=== PATIENT | male | born 1945 | race Caucasian/White ===

== ENCOUNTER → 2016-09-07 | Outpatient (CLI) | payer MEDICARE, BC ==
[~2016-09-07] MED LIST: ATORVASTATIN CA40 MG PO; CASODEX 50MG TA50 MG PO; CLOPIDOGREL PO; GLUCOPHAGE PO; GOOD SENSE ASPI81 M1 PO; ISOSORBIDE30 MG PO; LAMISIL250 MG PO; METOPROLOL SUCC25 M1 PO; METOPROLOL SUCC25 MG PO; NITROGLYCERIN0.4 M1 SL; PRILOSEC 20MG20 MG PO; [UNRECOGNIZED DRUG - OTHER] SC
== END ==
LOC: LAB 07:53
DX: E11.9 Type 2 diabetes mellitus without complications (principal); C61 Malignant neoplasm of prostate

== ENCOUNTER → 2016-10-20 | Outpatient (CLI) | payer MEDICARE, BC | LOC: LAB 13:53 | DX: C61 Malignant neoplasm of prostate (principal) ==

== ENCOUNTER → 2016-12-21 | Outpatient (CLI) | payer MEDICARE, BC ==
[2013-01-19 16:35] VITALS: BP 112/69
== END ==
LOC: LAB 08:39
DX: C61 Malignant neoplasm of prostate (principal)

== ENCOUNTER → 2017-01-06 | Outpatient (CLI) | payer MEDICARE, BC ==
[~2017-01-06] VITALS: Ht 175.3 cm; Wt 94.1 kg
[2017-01-06 14:50] VITALS: BP 98/61
[2017-01-06 14:57] VITALS: BP 105/52
[2017-01-06 16:34] VITALS: BP 106/64
--- NOTE | 2017-01-06 16:36 | NUR ---
RESULTS OF OUTPATIENT TX CALLED TO , REQUESTS PT RETURN TO CLINIC SO HE CAN DC HIM WITH THE PROPER MEDICATIONS, WILL REMOVE IV AND ESCORT PT TO CLINIC AT THIS TIME
== END ==
LOC: AMSURD 14:49
DX: I95.9 Hypotension, unspecified (principal); R51 Headache; R53.83 Other fatigue
CPT/HCPCS: J7030

== ENCOUNTER → 2017-06-01 | Outpatient (CLI) | payer MEDICARE, BC ==
[2017-01-06 16:34] VITALS: BP 106/64
== END ==
LOC: LAB 07:02
DX: I25.10 Atherosclerotic heart disease of native coronary artery without angina pectoris (principal); E11.9 Type 2 diabetes mellitus without complications; E80.6 Other disorders of bilirubin metabolism

== ENCOUNTER → 2018-01-26 | Outpatient (CLI) | payer MEDICARE, BC ==
[2017-01-06 16:34] VITALS: BP 106/64
[2018-01-26 22:46] LABS: TESTOSTERONE 42 ng/dL (221-716)
== END ==
LOC: LAB 16:21
PROVIDERS: Family Medicine
DX: C61 Malignant neoplasm of prostate (principal); E11.9 Type 2 diabetes mellitus without complications; M79.606 Pain in leg, unspecified

== ENCOUNTER 2018-03-15 10:18 | Emergency (ER) | payer MEDICARE, BC ==
[~2018-03-15] VITALS: Ht 175.3 cm; Wt 90.9 kg
[2018-03-15 10:54] LABS: EOS # 0.3 (0.04-0.40); HEMATOCRIT 42.1 % (42.0-52.0); HEMOGLOBIN 14.1 g/dL (13.5-18.0); LYMPH# 1.4 (1.50-4.00); MEAN CELL VOLUME 81 fl (78-100); MEAN CORPUSCULAR HEMOGLOBIN 27 pg (27-31); MEAN CORPUSCULAR HGB CONC 34 g/dL (33-37); MEAN PLATELET VOLUME 8.7 fl (7.4-10.4); MONO # 0.6 (0.20-0.80); NEU # 4.3 (1.40-6.50); PLATELET COUNT 207 K/mm3 (130-400); RED BLOOD COUNT 5.19 M/mm3 (4.20-5.60); RED CELL DISTRIBUTION WIDTH 14.1 % (11.5-14.5); WHITE BLOOD COUNT 6.5 K/mm3 (4.8-10.8)
[2018-03-15 11:05] LABS: BUN/CREATININE RATIO 20.4 (6.0-26.0); CALCIUM 9.1 mg/dL (8.4-10.2); TOTAL BILIRUBIN 1.6 mg/dL (0.2-1.3)
[2018-03-15 11:08] LABS: PROTHROMBIN TIME 9.3 SECONDS (9.0-12.0)
[2018-03-15] MEDS ORDERED: GLUCOPHAGE PO (14:13)
[2018-03-15 14:50] VITALS: BP 122/62
== END 2018-03-15 14:56 | disposition home or self-care (01) ==
LOC: ED 10:18
PROVIDERS: Nurse Practitioner
DX: R07.9 Chest pain, unspecified (principal); I95.2 Hypotension due to drugs; R00.1 Bradycardia, unspecified; T44.7X5A Adverse effect of beta-adrenoreceptor antagonists, initial encounter; Z79.02 Long term (current) use of antithrombotics/antiplatelets; I25.10 Atherosclerotic heart disease of native coronary artery without angina pectoris; I10 Essential (primary) hypertension; Z95.5 Presence of coronary angioplasty implant and graft; E11.9 Type 2 diabetes mellitus without complications; Z79.899 Other long term (current) drug therapy; Z79.84 Long term (current) use of oral hypoglycemic drugs; Z79.82 Long term (current) use of aspirin
CPT/HCPCS: J7030

== ENCOUNTER → 2018-04-30 | Outpatient (CLI) | payer MEDICARE, BC ==
[2018-04-30 13:09] LABS: HEMATOCRIT 41.4 % (42.0-52.0); HEMOGLOBIN 14.4 g/dL (13.5-18.0); MEAN CELL VOLUME 81 fl (78-100); MEAN CORPUSCULAR HEMOGLOBIN 28 pg (27-31); MEAN CORPUSCULAR HGB CONC 35 g/dL (33-37); MEAN PLATELET VOLUME 8.8 fl (7.4-10.4); PLATELET COUNT 219 K/mm3 (130-400); RED CELL DISTRIBUTION WIDTH 14.1 % (11.5-14.5); WHITE BLOOD COUNT 10.5 K/mm3 (4.8-10.8)
[2018-04-30 13:16] LABS: URINE APPEARANCE CLOUDY; URINE BILIRUBIN NEGATIVE (NEGATIVE); URINE BLOOD TRACE (NEGATIVE); URINE COLOR YELLOW; URINE GLUCOSE NEGATIVE (NEGATIVE); URINE KETONE NEGATIVE (NEGATIVE); URINE LEUKOCYTE ESTERASE NEGATIVE (NEGATIVE); URINE NITRATE NEGATIVE (NEGATIVE); URINE PROTEIN(semi-quant) NEGATIVE (NEGATIVE); URINE UROBILINOGEN NORMAL (NORMAL)
[2018-04-30 13:26] LABS: BAND 1 % (0-10)
[2018-04-30 13:27] LABS: LYMPHOCYTE 7 % (20-51); MONOCYTE 7 % (3-10); NEUTROPHILS 82 % (42-75)
== END ==
LOC: LAB 12:50 → RAD 12:50
PROVIDERS: Family Medicine
DX: R10.9 Unspecified abdominal pain (principal); N20.0 Calculus of kidney; Z98.890 Other specified postprocedural states

== ENCOUNTER → 2018-05-03 | Outpatient (CLI) | payer MEDICARE, BC | LOC: LAB 12:18 | DX: R10.9 Unspecified abdominal pain (principal); G89.29 Other chronic pain ==

== ENCOUNTER → 2018-08-09 | Outpatient (CLI) | payer MEDICARE, BC ==
[2018-08-09 07:50] LABS: ALBUMIN 3.9 g/dL (3.5-5.0); CALCIUM 9.1 mg/dL (8.4-10.2); POTASSIUM 4.1 mmol/L (3.6-5.0); TOTAL BILIRUBIN 1.6 mg/dL (0.2-1.3); TOTAL PROTEIN 6.7 g/dL (6.3-8.2)
== END ==
LOC: LAB 06:38
PROVIDERS: Family Medicine
DX: C61 Malignant neoplasm of prostate (principal); I51.9 Heart disease, unspecified; E11.9 Type 2 diabetes mellitus without complications; E78.00 Pure hypercholesterolemia, unspecified

== ENCOUNTER 2018-08-25 09:22 | Emergency (ER) | payer MEDICARE, BC ==
[~2018-08-25] VITALS: Wt 95.9 kg
[2018-08-25] MEDS ORDERED: ZYRTEC10 M3 PO (09:48)
[2018-08-25 10:03] LABS: EOS # 0.2 (0.04-0.40); EOS % 3.2 % (0.0-4.0); HEMATOCRIT 41.4 % (42.0-52.0); LYMPH# 0.9 (1.50-4.00); MEAN CELL VOLUME 82 fl (78-100); MEAN CORPUSCULAR HEMOGLOBIN 28 pg (27-31); MEAN CORPUSCULAR HGB CONC 34 g/dL (33-37); MEAN PLATELET VOLUME 8.9 fl (7.4-10.4); MONO # 0.4 (0.20-0.80); NEU # 5.7 (1.40-6.50); PLATELET COUNT 204 K/mm3 (130-400); RED BLOOD COUNT 5.06 M/mm3 (4.20-5.60); RED CELL DISTRIBUTION WIDTH 13.5 % (11.5-14.5); WHITE BLOOD COUNT 7.2 K/mm3 (4.8-10.8)
[2018-08-25 10:12] LABS: ALBUMIN 3.8 g/dL (3.5-5.0); CALCIUM 8.8 mg/dL (8.4-10.2); POTASSIUM 4.2 mmol/L (3.6-5.0); TOTAL BILIRUBIN 1.6 mg/dL (0.2-1.3); TOTAL PROTEIN 6.2 g/dL (6.3-8.2)
[2018-08-25] MEDS ORDERED: MECLIZINE PO (10:34)
[2018-08-25 10:42] LABS: URINE APPEARANCE CLEAR; URINE BILIRUBIN NEGATIVE (NEGATIVE); URINE BLOOD TRACE (NEGATIVE); URINE COLOR YELLOW; URINE GLUCOSE NEGATIVE (NEGATIVE); URINE KETONE NEGATIVE (NEGATIVE); URINE LEUKOCYTE ESTERASE NEGATIVE (NEGATIVE); URINE MUCUS PRESENT (NOT PRESENT); URINE NITRATE NEGATIVE (NEGATIVE); URINE PROTEIN(semi-quant) TRACE mg/dL (NEGATIVE); URINE UROBILINOGEN NORMAL (NORMAL); URINE WBC 0-1 /hpf (0-3)
[2018-08-25 10:47] VITALS: BP 112/63
== END 2018-08-25 10:48 | disposition home or self-care (01) ==
LOC: ED 09:22
PROVIDERS: Nurse Practitioner Primary Care
DX: R42 Dizziness and giddiness (principal); E11.9 Type 2 diabetes mellitus without complications; Z79.84 Long term (current) use of oral hypoglycemic drugs; I25.10 Atherosclerotic heart disease of native coronary artery without angina pectoris; I10 Essential (primary) hypertension; Z95.5 Presence of coronary angioplasty implant and graft; Z79.02 Long term (current) use of antithrombotics/antiplatelets; E78.5 Hyperlipidemia, unspecified; K21.9 Gastro-esophageal reflux disease without esophagitis; Z85.46 Personal history of malignant neoplasm of prostate; Z79.82 Long term (current) use of aspirin; Z79.899 Other long term (current) drug therapy

== ENCOUNTER → 2018-11-09 | Outpatient (CLI) | payer MEDICARE, BC ==
[~2018-11-09] MED LIST changes: +MECLIZINE PO; +ZYRTEC10 M3 PO
== END ==
LOC: LAB 06:39
PROVIDERS: Urology
DX: E11.9 Type 2 diabetes mellitus without complications (principal); C61 Malignant neoplasm of prostate

== ENCOUNTER → 2019-02-06 | Outpatient (CLI) | payer MEDICARE | LOC: LAB 07:57 | DX: C61 Malignant neoplasm of prostate (principal) ==

== ENCOUNTER → 2019-05-03 | Outpatient (CLI) | payer MEDICARE | LOC: LAB 08:29 | DX: E11.9 Type 2 diabetes mellitus without complications (principal) ==

== ENCOUNTER → 2019-06-05 | Outpatient (CLI) | payer MEDICARE | LOC: RAD 16:26 | DX: M47.816 Spondylosis without myelopathy or radiculopathy, lumbar region (principal); R10.30 Lower abdominal pain, unspecified; R31.9 Hematuria, unspecified; M25.559 Pain in unspecified hip ==

== ENCOUNTER → 2019-06-08 | Outpatient (CLI) | payer MEDICARE ==
[2019-06-08 08:44] LABS: URINE APPEARANCE CLEAR; URINE COLOR YELLOW
[2019-06-08 08:45] LABS: URINE BILIRUBIN NEGATIVE (NEGATIVE); URINE BLOOD 50 ery/uL (NEGATIVE); URINE GLUCOSE NEGATIVE (NEGATIVE); URINE KETONE NEGATIVE (NEGATIVE); URINE LEUKOCYTE ESTERASE NEGATIVE (NEGATIVE); URINE MUCUS PRESENT (NOT PRESENT); URINE NITRATE NEGATIVE (NEGATIVE); URINE PROTEIN(semi-quant) NEGATIVE (NEGATIVE); URINE UROBILINOGEN NORMAL (NORMAL)
== END ==
LOC: LAB 08:22
PROVIDERS: Family Medicine
DX: R31.9 Hematuria, unspecified (principal)

== ENCOUNTER → 2019-07-11 | Outpatient (CLI) | payer MEDICARE | LOC: LAB 08:27 | DX: C61 Malignant neoplasm of prostate (principal) ==

== ENCOUNTER 2019-07-17 09:00 | Outpatient (RCR) | payer MEDICARE | END 2019-07-17 09:30 | disposition still patient (30) | LOC: PT 09:00 | DX: M54.5 Low back pain (principal) ==

== ENCOUNTER → 2019-08-10 | Outpatient (CLI) | payer MEDICARE | LOC: LAB 09:46 | DX: E11.9 Type 2 diabetes mellitus without complications (principal) ==

== ENCOUNTER → 2019-09-13 | Outpatient (CLI) | payer MEDICARE ==
[2019-09-13 17:15] LABS: BASO # 0.1 (0.02-0.10); EOS # 0.6 (0.04-0.40); HEMATOCRIT 42.1 % (42.0-52.0); HEMOGLOBIN 14.2 g/dL (13.5-18.0); LYMPH# 1.8 (1.50-4.00); MEAN CELL VOLUME 81 fl (78-100); MEAN CORPUSCULAR HEMOGLOBIN 27 pg (27-31); MEAN CORPUSCULAR HGB CONC 34 g/dL (33-37); MEAN PLATELET VOLUME 9.1 fl (7.4-10.4); MONO # 0.7 (0.20-0.80); NEU # 5.1 (1.40-6.50); PLATELET COUNT 216 K/mm3 (130-400); RED BLOOD COUNT 5.23 M/mm3 (4.20-5.60); WHITE BLOOD COUNT 8.2 K/mm3 (4.8-10.8)
[2019-09-13 17:26] LABS: ALBUMIN 3.9 g/dL (3.4-4.8); POTASSIUM 4.2 mmol/L (3.5-5.1)
[2019-09-13 17:27] LABS: CALCIUM 9.4 mg/dL (8.3-10.5)
[2019-09-13 17:29] LABS: TOTAL PROTEIN 6.7 g/dL (6.2-8.1)
[2019-09-13 17:30] LABS: TOTAL BILIRUBIN 1.6 mg/dL (0.2-1.2)
[2019-09-13 17:38] LABS: URINE APPEARANCE CLEAR; URINE COLOR YELLOW
[2019-09-13 17:39] LABS: URINE BILIRUBIN NEGATIVE (NEGATIVE); URINE BLOOD NEGATIVE (NEGATIVE); URINE GLUCOSE NEGATIVE (NEGATIVE); URINE KETONE NEGATIVE (NEGATIVE); URINE LEUKOCYTE ESTERASE NEGATIVE (NEGATIVE); URINE NITRATE NEGATIVE (NEGATIVE); URINE PROTEIN(semi-quant) TRACE mg/dL (NEGATIVE); URINE UROBILINOGEN NORMAL (NORMAL); URINE WBC 0-1 /hpf (0-3)
[2019-09-13 18:43] LABS: EOS % 6.7 % (0.0-4.0); ERYTHROCYTE SEDIMENTATION RATE 7 mm/hr (0-20)
[2019-09-14 10:31] LABS: DIRECT BILIRUBIN 0.4 mg/dL (0.0-0.5)
== END ==
LOC: LAB 16:42
PROVIDERS: Family Medicine
DX: K21.9 Gastro-esophageal reflux disease without esophagitis (principal); E78.00 Pure hypercholesterolemia, unspecified

== ENCOUNTER → 2019-09-14 | Outpatient (CLI) | payer MEDICARE | LOC: RAD 07:55 | DX: K59.02 Outlet dysfunction constipation (principal); Z90.49 Acquired absence of other specified parts of digestive tract; Z98.890 Other specified postprocedural states; Z96.641 Presence of right artificial hip joint ==

== ENCOUNTER → 2019-11-06 | Outpatient (CLI) | payer MEDICARE | LOC: LAB 06:59 | DX: E11.9 Type 2 diabetes mellitus without complications (principal); E78.00 Pure hypercholesterolemia, unspecified; K21.9 Gastro-esophageal reflux disease without esophagitis; C61 Malignant neoplasm of prostate; R10.9 Unspecified abdominal pain ==

== ENCOUNTER → 2020-01-10 | Outpatient (CLI) | payer MEDICARE | LOC: LAB 08:10 | DX: C61 Malignant neoplasm of prostate (principal) ==

== ENCOUNTER → 2020-03-11 | Outpatient (CLI) | payer MEDICARE | LOC: LAB 09:23 | DX: Z20.828 Contact with and (suspected) exposure to other viral communicable diseases (principal) ==

== ENCOUNTER → 2020-03-14 | Day surgery (SDC) | payer MEDICARE | LOC: MSO 07:17 | DX: K57.30 Diverticulosis of large intestine without perforation or abscess without bleeding (principal); R19.7 Diarrhea, unspecified; Z86.010 Personal history of colon polyps; K59.00 Constipation, unspecified; K22.2 Esophageal obstruction; Z20.828 Contact with and (suspected) exposure to other viral communicable diseases; Z88.3 Allergy status to other anti-infective agents; Z88.5 Allergy status to narcotic agent; Z88.8 Allergy status to other drugs, medicaments and biological substances; K21.0 Gastro-esophageal reflux disease with esophagitis; E11.9 Type 2 diabetes mellitus without complications | CPT/HCPCS: 00813; C1769; J2704; J3010; J7030 ==

== ENCOUNTER → 2020-06-14 | Outpatient (CLI) | payer MEDICARE | LOC: LAB 16:01 | DX: E11.9 Type 2 diabetes mellitus without complications (principal); C61 Malignant neoplasm of prostate ==

== ENCOUNTER → 2020-09-06 | Outpatient (CLI) | payer MEDICARE | LOC: LAB 07:50 | DX: E11.9 Type 2 diabetes mellitus without complications (principal); E55.9 Vitamin D deficiency, unspecified ==

== ENCOUNTER → 2020-09-21 | Outpatient (CLI) | payer MEDICARE | LOC: LAB 08:30 | DX: C61 Malignant neoplasm of prostate (principal) ==

== ENCOUNTER → 2020-11-28 | Outpatient (CLI) | payer MEDICARE ==
[2020-11-28 17:31] LABS: EOS # 0.3 (0.04-0.40); EOS % 2.7 % (0.0-4.0); HEMATOCRIT 41.7 % (42.0-52.0); HEMOGLOBIN 13.8 g/dL (13.5-18.0); LYMPH# 1.3 (1.50-4.00); MEAN CELL VOLUME 81 fl (78-100); MEAN CORPUSCULAR HEMOGLOBIN 27 pg (27-31); MEAN CORPUSCULAR HGB CONC 33 g/dL (33-37); MEAN PLATELET VOLUME 8.9 fl (7.4-10.4); MONO # 0.9 (0.20-0.80); NEU # 7.5 (1.40-6.50); PLATELET COUNT 220 K/mm3 (130-400); RED BLOOD COUNT 5.12 M/mm3 (4.20-5.60); RED CELL DISTRIBUTION WIDTH 14.2 % (11.5-14.5)
[2020-11-28 17:46] LABS: URINE APPEARANCE CLEAR; URINE BILIRUBIN NEGATIVE (NEGATIVE); URINE BLOOD 50 ery/uL (NEGATIVE); URINE COLOR YELLOW; URINE GLUCOSE NEGATIVE (NEGATIVE); URINE KETONE NEGATIVE (NEGATIVE); URINE LEUKOCYTE ESTERASE NEGATIVE (NEGATIVE); URINE MUCUS PRESENT (NOT PRESENT); URINE NITRATE NEGATIVE (NEGATIVE); URINE PROTEIN(semi-quant) TRACE mg/dL (NEGATIVE); URINE UROBILINOGEN NORMAL (NORMAL); URINE WBC 0-1 /hpf (0-3)
== END ==
LOC: LAB 16:57
PROVIDERS: Family Medicine
DX: N39.0 Urinary tract infection, site not specified (principal)

== ENCOUNTER → 2020-12-06 | Outpatient (CLI) | payer MEDICARE ==
[2020-12-06 08:37] LABS: URINE APPEARANCE CLEAR; URINE BILIRUBIN NEGATIVE (NEGATIVE); URINE BLOOD TRACE (NEGATIVE); URINE COLOR YELLOW; URINE GLUCOSE NEGATIVE (NEGATIVE); URINE KETONE NEGATIVE (NEGATIVE); URINE LEUKOCYTE ESTERASE NEGATIVE (NEGATIVE); URINE NITRATE NEGATIVE (NEGATIVE); URINE PROTEIN(semi-quant) NEGATIVE (NEGATIVE); URINE UROBILINOGEN NORMAL (NORMAL); URINE WBC 0-1 /hpf (0-3)
== END ==
LOC: LAB 08:07
PROVIDERS: Family Medicine
DX: R10.32 Left lower quadrant pain (principal)

== ENCOUNTER → 2021-01-10 | Outpatient (CLI) | payer MEDICARE ==
[2021-01-10 08:27] LABS: CALCIUM 8.9 mg/dL (8.3-10.5)
== END ==
LOC: LAB 08:01
PROVIDERS: Internal Medicine Interventional Cardiology
DX: R60.0 Localized edema (principal)

== ENCOUNTER → 2021-03-13 | Outpatient (CLI) | payer MEDICARE | LOC: LAB 10:44 | DX: E11.9 Type 2 diabetes mellitus without complications (principal) ==

== ENCOUNTER → 2021-04-02 | Outpatient (CLI) | payer MEDICARE | LOC: LAB 09:47 | DX: C61 Malignant neoplasm of prostate (principal) ==

== ENCOUNTER → 2021-09-03 | Outpatient (CLI) | payer MEDICARE ==
[2021-09-03 09:40] LABS: ALBUMIN 3.8 g/dL (3.4-4.8)
[2021-09-03 09:41] LABS: POTASSIUM 4.3 mmol/L (3.5-5.1)
[2021-09-03 09:42] LABS: CALCIUM 9.1 mg/dL (8.3-10.5)
[2021-09-03 09:43] LABS: TOTAL PROTEIN 7.3 g/dL (6.2-8.1)
[2021-09-03 09:45] LABS: TOTAL BILIRUBIN 1.7 mg/dL (0.2-1.2)
== END ==
LOC: LAB 08:57
PROVIDERS: Family Medicine
DX: C61 Malignant neoplasm of prostate (principal); E11.9 Type 2 diabetes mellitus without complications

== ENCOUNTER → 2021-09-05 | Outpatient (CLI) | payer MEDICARE | LOC: LAB 08:08 | DX: E78.00 Pure hypercholesterolemia, unspecified (principal) ==

== ENCOUNTER → 2021-12-22 | Outpatient (CLI) | payer MEDICARE | LOC: LAB 16:56 | DX: Z00.00 Encounter for general adult medical examination without abnormal findings (principal); C61 Malignant neoplasm of prostate; E11.9 Type 2 diabetes mellitus without complications; I51.9 Heart disease, unspecified; E78.00 Pure hypercholesterolemia, unspecified; E80.4 Gilbert syndrome; H61.23 Impacted cerumen, bilateral ==

== ENCOUNTER → 2022-03-25 | Outpatient (CLI) | payer MEDICARE ==
[2022-03-25 08:57] LABS: POTASSIUM 4.2 mmol/L (3.5-5.1)
[2022-03-25 08:59] LABS: TOTAL PROTEIN 6.9 g/dL (6.2-8.1)
[2022-03-25 09:01] LABS: TOTAL BILIRUBIN 2.8 mg/dL (0.2-1.2)
== END ==
LOC: LAB 07:56
PROVIDERS: Family Medicine
DX: E11.9 Type 2 diabetes mellitus without complications (principal)

== ENCOUNTER → 2022-09-17 | Outpatient (CLI) | payer MEDICARE ==
[2022-09-17 08:21] LABS: HEMATOCRIT 42.7 % (42.0-52.0); HEMOGLOBIN 14.7 g/dL (13.5-18.0); MEAN PLATELET VOLUME 8.5 fl (7.4-10.4); RED BLOOD COUNT 5.25 M/mm3 (4.20-5.60); RED CELL DISTRIBUTION WIDTH 13.5 % (11.5-14.5); WHITE BLOOD COUNT 7.6 K/mm3 (4.8-10.8)
[2022-09-17 08:25] LABS: POTASSIUM 4.3 mmol/L (3.5-5.1)
[2022-09-17 08:27] LABS: CALCIUM 9.8 mg/dL (8.3-10.5)
== END ==
LOC: LAB 08:01
PROVIDERS: Internal Medicine Interventional Cardiology
DX: E11.9 Type 2 diabetes mellitus without complications (principal); C61 Malignant neoplasm of prostate; I25.119 Atherosclerotic heart disease of native coronary artery with unspecified angina pectoris; E78.5 Hyperlipidemia, unspecified

== ENCOUNTER → 2022-09-29 | Outpatient (CLI) | payer MEDICARE ==
[2022-09-29 09:13] LABS: POTASSIUM 4.5 mmol/L (3.5-5.1)
[2022-09-29 09:14] LABS: CALCIUM 9.6 mg/dL (8.3-10.5)
[2022-09-29 09:16] LABS: TOTAL PROTEIN 6.7 g/dL (6.2-8.1)
[2022-09-29 09:17] LABS: TOTAL BILIRUBIN 1.6 mg/dL (0.2-1.2)
== END ==
LOC: LAB 08:50
PROVIDERS: Family Medicine
DX: I51.9 Heart disease, unspecified (principal); E11.9 Type 2 diabetes mellitus without complications; E78.00 Pure hypercholesterolemia, unspecified

== ENCOUNTER → 2022-10-09 | Outpatient (CLI) | payer MEDICARE ==
[2022-10-09 10:59] LABS: ALBUMIN 3.9 g/dL (3.4-4.8); POTASSIUM 4.2 mmol/L (3.5-5.1)
[2022-10-09 11:00] LABS: CALCIUM 9.1 mg/dL (8.3-10.5)
[2022-10-09 11:02] LABS: TOTAL PROTEIN 6.6 g/dL (6.2-8.1)
[2022-10-09 11:03] LABS: TOTAL BILIRUBIN 1.3 mg/dL (0.2-1.2)
[2022-10-09 11:14] LABS: BASO # 0.02 K/mm3 (0.02-0.10); EOS # 0.34 K/mm3 (0.04-0.40); EOS % 4.2 % (0.0-4.0); HEMOGLOBIN 14.4 g/dL (13.5-18.0); LYMPH# 0.86 K/mm3 (1.50-4.00); MEAN CELL VOLUME 83 fl (78-100); MEAN CORPUSCULAR HEMOGLOBIN 28 pg (27-31); MEAN CORPUSCULAR HGB CONC 34 g/dL (33-37); MEAN PLATELET VOLUME 8.6 fl (7.4-10.4); MONO # 0.51 K/mm3 (0.20-0.80); NEU # 6.29 K/mm3 (1.40-6.50); PLATELET COUNT 247 K/mm3 (130-400); RED BLOOD COUNT 5.18 M/mm3 (4.20-5.60)
== END ==
LOC: LAB 10:39
PROVIDERS: Internal Medicine
DX: C61 Malignant neoplasm of prostate (principal)

== ENCOUNTER 2022-11-18 11:14 | Emergency (ER) | payer MEDICARE ==
[~2022-11-18] VITALS: Ht 167.6 cm; Wt 87.3 kg
[2022-11-18 12:29] LABS: BASO # 0.01 K/mm3 (0.02-0.10); EOS # 0.22 K/mm3 (0.04-0.40); EOS % 3.4 % (0.0-4.0); HEMATOCRIT 41.5 % (42.0-52.0); LYMPH# 1.22 K/mm3 (1.50-4.00); MEAN CELL VOLUME 83 fl (78-100); MEAN CORPUSCULAR HEMOGLOBIN 28 pg (27-31); MEAN CORPUSCULAR HGB CONC 34 g/dL (33-37); MEAN PLATELET VOLUME 8.9 fl (7.4-10.4); MONO # 0.49 K/mm3 (0.20-0.80); NEU # 4.59 K/mm3 (1.40-6.50); PLATELET COUNT 241 K/mm3 (130-400); RED CELL DISTRIBUTION WIDTH 13.3 % (11.5-14.5); WHITE BLOOD COUNT 6.5 K/mm3 (4.8-10.8)
[2022-11-18 12:37] LABS: ALBUMIN 3.7 g/dL (3.4-4.8); SODIUM 141 mmol/L (136-145)
[2022-11-18 12:39] LABS: CALCIUM 9.2 mg/dL (8.3-10.5)
[2022-11-18 12:40] LABS: GLUCOSE 123 mg/dL (75-110); TOTAL PROTEIN 5.8 g/dL (6.2-8.1)
[2022-11-18 12:41] LABS: CARBON DIOXIDE 22 mmol/L (23-31)
[2022-11-18 12:42] LABS: TOTAL BILIRUBIN 1.3 mg/dL (0.2-1.2)
[2022-11-18 12:45] LABS: AST-SGOT 7 U/L (5-34)
[2022-11-18 12:46] LABS: ALT/SGPT 9 U/L (0-55)
[2022-11-18 12:58] LABS: TROPONIN-I < 0.030 ng/mL (<0.030)
[2022-11-18 13:01] LABS: D-DIMER 0.55 mg/L FEU (0.15-0.50)
[2022-11-18] MEDS ORDERED: PRILOSEC 20MG20 MG PO (13:30)
[2022-11-18 13:46] VITALS: BP 96/61
== END 2022-11-18 13:46 | disposition home or self-care (01) ==
LOC: ED 11:14
PROVIDERS: Physician Assistant
DX: R07.89 Other chest pain (principal); R00.1 Bradycardia, unspecified; R06.02 Shortness of breath; Z95.5 Presence of coronary angioplasty implant and graft

== ENCOUNTER 2023-03-30 13:00 | Outpatient (RCR) | payer MEDICARE ==
[~2023-03-30 13:00] MED LIST changes: +CELECOXIB200 M1 PO; +ISOSORBIDE MON120 MG PO; +JANUVIA 100MG100 MG; +MEGESTROL ACETA20 M1 PO; +METFORMIN HYD1000 MG PO; +NEURONTIN300 MG/CAP; +RANOLAZINE ER500 MG PO; +ROXICODONE 55 MG/TAB PO; +SPIRONOLACTONE50 M1 PO; +XARELTO10 MG PO
== END 2023-04-29 | disposition home or self-care (01) ==
LOC: PT
DX: M17.12 Unilateral primary osteoarthritis, left knee (principal)

== ENCOUNTER 2023-06-12 15:07 | Emergency (ER) | payer MEDICARE ==
[~2023-06-12] VITALS: Ht 172.7 cm; Wt 86.4 kg
[2023-06-12 15:48] LABS: BASO # 0.02 K/mm3 (0.02-0.10); EOS # 0.29 K/mm3 (0.04-0.40); EOS % 4.9 % (0.0-4.0); HEMATOCRIT 38.7 % (42.0-52.0); HEMOGLOBIN 13.2 g/dL (13.5-18.0); LYMPH# 1.35 K/mm3 (1.50-4.00); MEAN CELL VOLUME 84 fl (78-100); MEAN CORPUSCULAR HEMOGLOBIN 29 pg (27-31); MEAN CORPUSCULAR HGB CONC 34 g/dL (33-37); MONO # 0.46 K/mm3 (0.20-0.80); NEU # 3.78 K/mm3 (1.40-6.50); PLATELET COUNT 213 K/mm3 (130-400); RED BLOOD COUNT 4.63 M/mm3 (4.20-5.60); RED CELL DISTRIBUTION WIDTH 13.1 % (11.5-14.5); WHITE BLOOD COUNT 5.9 K/mm3 (4.8-10.8)
[2023-06-12 15:54] LABS: ALBUMIN 3.8 g/dL (3.4-4.8); POTASSIUM 3.9 mmol/L (3.5-5.1); SODIUM 140 mmol/L (136-145)
[2023-06-12 15:55] LABS: CALCIUM 8.8 mg/dL (8.3-10.5)
[2023-06-12 15:56] LABS: GLUCOSE 234 mg/dL (75-110)
[2023-06-12 15:57] LABS: CARBON DIOXIDE 21 mmol/L (23-31)
[2023-06-12 15:58] LABS: PROTHROMBIN TIME 9.8 SECONDS (9.0-12.0); TOTAL BILIRUBIN 1.4 mg/dL (0.2-1.2)
[2023-06-12 16:02] LABS: AST-SGOT 11 U/L (5-34)
[2023-06-12 16:03] LABS: ALT/SGPT 15 U/L (0-55)
[2023-06-12 16:11] LABS: TROPONIN-I < 0.030 ng/mL (<0.030)
[2023-06-12 17:04] VITALS: BP 136/74
== END 2023-06-12 17:12 | disposition home or self-care (01) ==
LOC: ED 15:07
PROVIDERS: Physician Assistant
DX: R07.89 Other chest pain (principal); R42 Dizziness and giddiness; Z98.61 Coronary angioplasty status
CPT/HCPCS: J7030

== ENCOUNTER 2023-06-22 20:01 | Emergency (ER) | payer MEDICARE ==
[~2023-06-22] VITALS: Wt 86.4 kg
[2023-06-22 21:01] LABS: ALBUMIN 3.8 g/dL (3.4-4.8); SODIUM 142 mmol/L (136-145)
[2023-06-22 21:03] LABS: CALCIUM 8.9 mg/dL (8.3-10.5)
[2023-06-22 21:04] LABS: BASO # 0.02 K/mm3 (0.02-0.10); EOS # 0.27 K/mm3 (0.04-0.40); EOS % 4.1 % (0.0-4.0); HEMATOCRIT 36.5 % (42.0-52.0); HEMOGLOBIN 12.3 g/dL (13.5-18.0); MEAN CELL VOLUME 84 fl (78-100); MEAN CORPUSCULAR HEMOGLOBIN 28 pg (27-31); MEAN CORPUSCULAR HGB CONC 34 g/dL (33-37); MEAN PLATELET VOLUME 8.5 fl (7.4-10.4); NEU # 4.23 K/mm3 (1.40-6.50); PLATELET COUNT 193 K/mm3 (130-400); RED BLOOD COUNT 4.36 M/mm3 (4.20-5.60); WHITE BLOOD COUNT 6.6 K/mm3 (4.8-10.8)
[2023-06-22 21:04] LABS: GLUCOSE 173 mg/dL (75-110); TOTAL PROTEIN 6.1 g/dL (6.2-8.1)
[2023-06-22 21:05] LABS: CARBON DIOXIDE 22 mmol/L (23-31)
[2023-06-22 21:06] LABS: TOTAL BILIRUBIN 1.4 mg/dL (0.2-1.2)
[2023-06-22 21:09] LABS: AST-SGOT 15 U/L (5-34)
[2023-06-22 21:20] LABS: TROPONIN-I < 0.030 ng/mL (<0.030)
[2023-06-22 21:35] LABS: ALT/SGPT 15 U/L (0-55)
[2023-06-22 23:39] LABS: PARTIAL THROMBOPLASTIN TIME 19.9 SECONDS (21.0-32.0); PROTHROMBIN TIME 9.9 SECONDS (9.0-12.0)
[2023-06-22 23:53] VITALS: BP 121/72
== END 2023-06-22 23:46 | disposition short-term general hospital (02) ==
LOC: ED 20:01
PROVIDERS: Physician Assistant
DX: I20.0 Unstable angina (principal); Z95.5 Presence of coronary angioplasty implant and graft; Z79.82 Long term (current) use of aspirin
CPT/HCPCS: J1644

== ENCOUNTER 2023-12-07 13:22 | Emergency (ER) | payer MEDICARE ==
[~2023-12-07] VITALS: Ht 172.7 cm; Wt 89.1 kg
[2023-12-07 13:43] LABS: BASO # 0.02 K/mm3 (0.02-0.10); EOS # 0.28 K/mm3 (0.04-0.40); EOS % 3.9 % (0.0-4.0); HEMATOCRIT 42.1 % (42.0-52.0); HEMOGLOBIN 14.5 g/dL (13.5-18.0); LYMPH# 1.15 K/mm3 (1.50-4.00); MEAN CELL VOLUME 82 fl (78-100); MEAN CORPUSCULAR HEMOGLOBIN 28 pg (27-31); MEAN CORPUSCULAR HGB CONC 34 g/dL (33-37); MEAN PLATELET VOLUME 8.6 fl (7.4-10.4); MONO # 0.57 K/mm3 (0.20-0.80); NEU # 5.07 K/mm3 (1.40-6.50); PLATELET COUNT 230 K/mm3 (130-400); RED BLOOD COUNT 5.15 M/mm3 (4.20-5.60); RED CELL DISTRIBUTION WIDTH 13.5 % (11.5-14.5); WHITE BLOOD COUNT 7.1 K/mm3 (4.8-10.8)
[2023-12-07 13:50] LABS: ALBUMIN 4.1 g/dL (3.4-4.8); SODIUM 143 mmol/L (136-145)
[2023-12-07 13:51] LABS: CALCIUM 9.6 mg/dL (8.3-10.5)
[2023-12-07 13:52] LABS: GLUCOSE 236 mg/dL (75-110)
[2023-12-07 13:53] LABS: TOTAL PROTEIN 6.6 g/dL (6.2-8.1)
[2023-12-07 13:54] LABS: CARBON DIOXIDE 21 mmol/L (23-31); TOTAL BILIRUBIN 1.5 mg/dL (0.2-1.2)
[2023-12-07 13:58] LABS: AST-SGOT 14 U/L (5-34)
[2023-12-07 13:59] LABS: ALT/SGPT 18 U/L (0-55)
[2023-12-07 14:06] LABS: TROPONIN-I < 0.030 ng/mL (0.00-0.033)
[2023-12-07 14:07] LABS: D-DIMER 0.73 mg/L FEU (0.15-0.50)
[2023-12-07 17:45] VITALS: BP 103/61
== END 2023-12-07 18:02 | disposition home or self-care (01) ==
LOC: ED 13:22
PROVIDERS: Physician Assistant
DX: R07.89 Other chest pain (principal); R06.02 Shortness of breath

== ENCOUNTER → 2024-01-27 | Outpatient (CLI) | payer MEDICARE ==
[~2024-01-27] MED LIST changes: +CLOPIDOGREL75 M2 PO; +TRAMADOL 50 MG TAB PO
[2024-03-16 11:05] LABS: CALCIUM 9.2 mg/dL (8.3-10.5)
[2024-03-17 17:43] LABS: CREATININE OTHER SOURCE 111.3
== END ==
LOC: LAB 08:36
PROVIDERS: Family Medicine
DX: Z11.59 Encounter for screening for other viral diseases (principal); E78.2 Mixed hyperlipidemia; E11.9 Type 2 diabetes mellitus without complications

== ENCOUNTER → 2024-03-10 | Outpatient (CLI) | payer MEDICARE ==
[2024-03-10 18:16] LABS: SODIUM 138 mmol/L (136-145)
[2024-03-10 18:17] LABS: CALCIUM 9.2 mg/dL (8.3-10.5)
[2024-03-10 18:18] LABS: GLUCOSE 301 mg/dL (75-110)
[2024-03-10 18:19] LABS: CARBON DIOXIDE 22 mmol/L (23-31)
[2024-03-10 18:31] LABS: TROPONIN-I < 0.030 ng/mL (0.00-0.033)
== END ==
LOC: LAB 17:17
DX: R06.09 Other forms of dyspnea (principal); R07.89 Other chest pain

== ENCOUNTER 2024-03-14 14:41 | Emergency (ER) | payer MEDICARE ==
[~2024-03-14] VITALS: Ht 167.6 cm; Wt 87.7 kg
[~2024-03-14 14:41] MED LIST changes: -CLOPIDOGREL75 M2 PO; -TRAMADOL 50 MG TAB PO
[2024-03-14] MEDS ORDERED: TRAMADOL 50 MG TAB PO (14:58)
[2024-03-14] MEDS ORDERED: CLOPIDOGREL75 M2 PO (14:59)
[2024-03-14 15:02] LABS: BASO # 0.03 K/mm3 (0.02-0.10); EOS # 0.22 K/mm3 (0.04-0.40); EOS % 2.9 % (0.0-4.0); HEMATOCRIT 42.1 % (42.0-52.0); HEMOGLOBIN 14.4 g/dL (13.5-18.0); LYMPH# 1.41 K/mm3 (1.50-4.00); MEAN CELL VOLUME 82 fl (78-100); MEAN CORPUSCULAR HEMOGLOBIN 28 pg (27-31); MEAN CORPUSCULAR HGB CONC 34 g/dL (33-37); MEAN PLATELET VOLUME 8.7 fl (7.4-10.4); MONO # 0.52 K/mm3 (0.20-0.80); NEU # 5.33 K/mm3 (1.40-6.50); PLATELET COUNT 235 K/mm3 (130-400); RED BLOOD COUNT 5.16 M/mm3 (4.20-5.60); RED CELL DISTRIBUTION WIDTH 13.5 % (11.5-14.5); WHITE BLOOD COUNT 7.5 K/mm3 (4.8-10.8)
[2024-03-14 15:18] LABS: ALBUMIN 3.9 g/dL (3.4-4.8); SODIUM 135 mmol/L (136-145)
[2024-03-14 15:19] LABS: CALCIUM 9.8 mg/dL (8.3-10.5)
[2024-03-14 15:20] LABS: GLUCOSE 367 mg/dL (75-110)
[2024-03-14 15:21] LABS: TOTAL PROTEIN 6.5 g/dL (6.2-8.1)
[2024-03-14 15:22] LABS: CARBON DIOXIDE 22 mmol/L (23-31); TOTAL BILIRUBIN 1.9 mg/dL (0.2-1.2)
[2024-03-14 15:26] LABS: AST-SGOT 11 U/L (5-34)
[2024-03-14 15:27] LABS: ALT/SGPT 14 U/L (0-55)
[2024-03-14 15:34] LABS: TROPONIN-I < 0.030 ng/mL (0.00-0.033)
[2024-03-14 18:28] VITALS: BP 105/70
== END 2024-03-14 18:31 | disposition home or self-care (01) ==
LOC: ED 14:41
PROVIDERS: Physician Assistant
DX: R07.9 Chest pain, unspecified (principal); Z95.5 Presence of coronary angioplasty implant and graft

== ENCOUNTER → 2024-04-11 | Outpatient (CLI) | payer MEDICARE ==
[~2024-04-11] MED LIST changes: +CLOPIDOGREL75 M2 PO; +TRAMADOL 50 MG TAB PO
[2024-04-11 11:24] LABS: BASO # 0.01 K/mm3 (0.02-0.10); EOS # 0.23 K/mm3 (0.04-0.40); EOS % 3.2 % (0.0-4.0); HEMATOCRIT 41.3 % (42.0-52.0); HEMOGLOBIN 13.8 g/dL (13.5-18.0); LYMPH# 1.17 K/mm3 (1.50-4.00); MEAN CELL VOLUME 85 fl (78-100); MEAN CORPUSCULAR HEMOGLOBIN 28 pg (27-31); MEAN CORPUSCULAR HGB CONC 33 g/dL (33-37); MEAN PLATELET VOLUME 8.5 fl (7.4-10.4); MONO # 0.44 K/mm3 (0.20-0.80); PLATELET COUNT 241 K/mm3 (130-400); RED BLOOD COUNT 4.89 M/mm3 (4.20-5.60); RED CELL DISTRIBUTION WIDTH 13.3 % (11.5-14.5); WHITE BLOOD COUNT 7.2 K/mm3 (4.8-10.8)
[2024-04-11 11:40] LABS: ALBUMIN 3.9 g/dL (3.4-4.8)
[2024-04-11 11:42] LABS: CALCIUM 9.4 mg/dL (8.3-10.5)
[2024-04-11 11:45] LABS: TOTAL BILIRUBIN 1.4 mg/dL (0.2-1.2)
== END ==
LOC: LAB 11:07
PROVIDERS: Nurse Practitioner Family
DX: R10.9 Unspecified abdominal pain (principal)

== ENCOUNTER → 2024-04-21 | Outpatient (CLI) | payer MEDICARE | LOC: LAB 08:49 | DX: E11.9 Type 2 diabetes mellitus without complications (principal) ==

== ENCOUNTER → 2024-07-21 | Outpatient (CLI) | payer MEDICARE | LOC: LAB 09:10 | DX: E11.9 Type 2 diabetes mellitus without complications (principal); M25.562 Pain in left knee; Z96.652 Presence of left artificial knee joint ==

== ENCOUNTER → 2024-08-28 | Outpatient (CLI) | payer MEDICARE ==
[2024-08-28 09:22] LABS: URINE WBC 0 /hpf (0-3)
[2024-08-28 09:40] LABS: ALBUMIN 3.8 g/dL (3.4-4.8)
[2024-08-28 09:43] LABS: TOTAL PROTEIN 6.1 g/dL (6.2-8.1)
[2024-08-28 09:44] LABS: TOTAL BILIRUBIN 1.5 mg/dL (0.2-1.2)
[2024-08-28 09:48] LABS: URINE APPEARANCE CLEAR (CLEAR); URINE BILIRUBIN 1+ (NEGATIVE); URINE BLOOD NEGATIVE (NEGATIVE); URINE COLOR YELLOW (YELLOW); URINE GLUCOSE NEGATIVE (NEGATIVE); URINE KETONE NEGATIVE (NEGATIVE); URINE LEUKOCYTE ESTERASE NEGATIVE (NEGATIVE); URINE NITRATE NEGATIVE (NEGATIVE); URINE PROTEIN(semi-quant) TRACE (NEGATIVE)
[2024-08-28 09:49] LABS: URINE MUCUS PRESENT (NOT PRESENT)
== END ==
LOC: LAB 09:12
PROVIDERS: Family Medicine
DX: R10.13 Epigastric pain (principal); R10.9 Unspecified abdominal pain

== ENCOUNTER → 2024-10-18 | Outpatient (CLI) | payer MEDICARE | LOC: LAB 12:12 | DX: C61 Malignant neoplasm of prostate (principal) ==